=== PATIENT | female | born 1970 | race Caucasian/White ===

== ENCOUNTER 2017-03-28 16:36 | Emergency (ER) | payer OTHER ==
[~2017-03-28] VITALS: Ht 160 cm; Wt 101.5 kg
[2017-03-28 16:38] VITALS: PULSE 94; RESP 16; O2SAT 99
[2017-03-28] MEDS ORDERED: CETI10CH CHEW (16:45)
[2017-03-28] MEDS ORDERED: OMEP20TA93 PO (16:45)
--- NOTE | 2017-03-28 17:47 | PD ---
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 She had intense itching immediately. We something was on the steering wheel. She denies oral swelling. No difficulty breathing. No change in voice. No prior anaphylactic reactions. Symptom severity is moderate. No aggravating or alleviating factors. She has not taken any medications. PFSH Past Medical History Hx Anticoagulant Therapy: No Cardiovascular Problems: Yes (HTN) Diabetes: No GERD: Yes Influenza Vaccination: No ?: Not Tubal Ligation: Yes Past Surgical History Section: Yes Cholecystectomy: Yes Tonsillectomy: Yes Social History Alcohol Use: Yes (RARELY) Tobacco Use: No Substance Use: No Allergies-Medications (Allergen,Severity, Reaction): Coded Allergies: ragweed pollen (Verified Allergy, Severe, 03/28/17) Reported Meds & Prescriptions Reported Meds & Active Scripts Active Reported Cetirizine (Cetirizine HCl) 10 Mg Chew 10 Mg CHEW DAILY Omeprazole 20 Mg Tab 20 Mg PO DAILY Review of Systems Except as stated in HPI: all other systems reviewed are Neg General / Constitutional: No: Fever Eyes: No: Visual changes HENT: No: Headaches Cardiovascular: No: Chest Pain or Discomfort Respiratory: No: Shortness of Breath Gastrointestinal: No: Abdominal Pain Genitourinary: No: Dysuria Physical Exam Narrative GENERAL: Alert and well-appearing female. No distress. SKIN: Warm and dry. Bilateral palms slightly erythematous. No hives. HEAD: Normocephalic. EYES: No injection or drainage. THROAT: No oropharyngeal edema. Uvula is midline. Airway is patent. Normal phonation. NECK: Supple, trachea midline. CARDIOVASCULAR: Regular rate and rhythm without murmurs, gallops, or rubs. RESPIRATORY: Breath sounds equal bilaterally. No accessory muscle use. No wheezing or stridor. GASTROINTESTINAL: Abdomen soft, non-tender, nondistended. MUSCULOSKELETAL: No cyanosis, or edema. Notable erythema to bilateral palms. No hives noted. No wounds or lesions. Data Data Last Documented VS Vital Signs Date Time Temp Pulse Resp B/P (MAP) Pulse Ox O2 Delivery O2 Flow Rate FiO2 03/28/17 16:38 94 16 99 Orders Orders Dexamethasone Inj (Decadron Inj) (03/28/17 18:00) Diphenhydramine (Benadryl) (03/28/17 18:00) MDM Medical Decision Making Medical Screen Exam Complete: Yes Emergency Medical Condition: Yes Differential Diagnosis Localized allergic Reaction, contact dermatitis, skin irritation Narrative Course 46-year-old female here with intense itching to her palms after grasping the steering wheel of a bus at her work. The patient is well-appearing. She has no systemic signs of allergic reaction. She is itching both hands intensely. She will be given a shot of Decadron and Benadryl. She is stable and ready for discharge. Diagnosis Primary Impression: Pruritus Referrals: Primary Care Physician Additional Instructions: Take [id number] Benadryl 25 mg every 6 hours as needed for itching. Disposition: 01 DISCHARGE HOME Condition: Stable Madhavi Cortez Mar 28, 2017 17:47
[2017-03-28] MEDS ORDERED: DEXAMETHASONE SOD PHOS 4 MG/ML VIAL IM ONE (18:00)
[2017-03-28] MEDS ORDERED: diphenhydrAMINE HCL 50 MG CAP PO ONE (18:00)
== END 2017-03-28 18:20 | disposition home or self-care (01) ==
LOC: PHEFT 16:36
DX: L29.9 Pruritus, unspecified (principal); I10 Essential (primary) hypertension; K21.9 Gastro-esophageal reflux disease without esophagitis; X58.XXXA Exposure to other specified factors, initial encounter; Y92.811 Bus as the place of occurrence of the external cause; Y99.0 Civilian activity done for income or pay; Z79.899 Other long term (current) drug therapy
CPT/HCPCS: 96372; 99284; J1100; Q0163